=== PATIENT | male | born 1970 | race Caucasian/White ===

== ENCOUNTER 2022-06-01 18:53 | Emergency (ER) | payer BC ==
[~2022-06-01] VITALS: Ht 170.2 cm; Wt 71.7 kg
[2022-06-01 19:19] VITALS: BP_SYST 145
--- NOTE | 2022-06-01 19:23 | NUR ---
Patient triaged and placed in waiting room. VS checked and patient appears in no acute distress at this time. Accompanied by self, awaiting available bed, and MD notified of need for MSE.
[2022-06-01 20:03] LABS: BASOPHILS % (AUTO) 0.1 % (0.0-2.0); BILIRUBIN,URINE NEGATIVE (NEGATIVE); BLOOD, URINE NEGATIVE (NEGATIVE); CLARITY/URINE CLEAR (CLEAR); COLOR,URINE YELLOW (YELLOW); EOSINOPHILS # (AUTO) 0.1 K/uL (0.0-0.4); EOSINOPHILS % (AUTO) 1.6 % (0.0-4.0); GLUCOSE,URINE NEGATIVE (NEGATIVE); HEMATOCRIT 46.4 % (36-54); HEMOGLOBIN 15.5 g/dL (14.0-18.0); KETONES,URINE NEGATIVE (NEGATIVE); LEUKOCYTE ESTERASE ,URINE NEGATIVE (NEGATIVE); LYMPHOCYTES # (AUTO) 1.5 K/uL (1.0-5.5); LYMPHOCYTES % (AUTO) 26.4 % (20.5-51.5); MEAN CORPUSCULAR HEMOGLOBIN 28 pg (27-31); MEAN CORPUSCULAR HGB CONC 33 % (32-36); MEAN CORPUSCULAR VOLUME 85 fL (79.0-98.0); MONOCYTES # (AUTO) 0.5 K/uL (0.0-1.0); MONOCYTES % (AUTO) 9.2 % (1.7-9.3); NEUTROPHILS # (AUTO) 3.7 K/uL (1.8-7.7); NEUTROPHILS % (AUTO) 62.7 % (40.0-70.0); NITRITE, URINE NEGATIVE (NEGATIVE); PLATELET COUNT (AUTO) 164 K/uL (130-430); PROTEIN URINE NEGATIVE (NEGATIVE); RED BLOOD CELL COUNT(AUTO) 5.49 MIL/uL (4.2-6.2); RED CELL DISTRIBUTION WIDTH 12.9 % (9.0-15.0); UROBILINOGEN,URINE 0.2 (0.2-1.0); WHITE BLOOD COUNT (AUTO) 5.9 K/uL (4.8-10.8)
[2022-06-01 20:15] LABS: ANION GAP 7 (5-15); CALCIUM 9.3 mg/dL (8.4-11.0); CHLORIDE 103 mmol/L (98-107); CREATININE 0.82 mg/dL (0.55-1.30); GLUCOSE 113 mg/dL (70-99); UREA NITROGEN, BLOOD 14 mg/dL (8-21)
[2022-06-01 20:29] LABS: ALANINE AMINOTRANSFERASE 36 U/L (12-78); ASPARTATE AMINOTRANSFERASE 42 U/L (10-37); TOTAL BILIRUBIN 0.5 mg/dL (0.0-1.0)
[2022-06-01 20:32] LABS: C-REACTIVE PROTEIN QUANT < 0.2 mg/dL (0-0.5); GFR AFRICAN AMERICAN 127 mL/min (>90)
--- NOTE | 2022-06-01 20:46 | NUR ---
Patient ambulatory to bed 4 for evaluation and treatment
[2022-06-01] MEDS ORDERED: IBUP-1971 PO (21:05)
[2022-06-01] MEDS ORDERED: HYDR-3917 PO (21:05)
[2022-06-01] MEDS ORDERED: CIPR500T5 PO (21:05)
[2022-06-01] MEDS ORDERED: KETOROLAC TROMETHAMINE 60 MG/2 ML VIAL IM ONE (21:15)
[2022-06-01] MEDS ORDERED: HYDROcodone/ACETAMIN 10-325 MG TAB PO ONE (21:15)
[2022-06-01] MEDS ORDERED: CIPROFLOXACIN HCL 500 MG TABLET PO ONE (21:15)
[2022-06-01 22:27] VITALS: BP_SYST 145
--- NOTE | 2022-06-01 22:27 | NUR ---
Patient given written and verbal discharge instructions and verbalizes understanding. ER MD discussed with patient the results and treatment provided. Patient in stable condition. ID arm band removed. Rx of CIPRO, NORCO, IBUPROFEN given. Patient educated on pain management and to follow up with PMD. Pain Scale 0/10. Opportunity for questions provided and answered. Medication side effect fact sheet provided.
== END 2022-06-01 22:27 | disposition home or self-care (01) ==
LOC: SED 18:53
DX: N45.1 Epididymitis (principal); N50.811 Right testicular pain; Z79.899 Other long term (current) drug therapy
CPT/HCPCS: 99284; 80053; 85025; 86140; 36415; 76870; 81003; J1885